=== PATIENT | male | born 1955 | race Hispanic/Latino ===

== ENCOUNTER 2024-01-05 19:15 | Emergency (ER) | payer MEDICARE, OTHER ==
[~2024-01-05] VITALS: Ht 157.5 cm; Wt 58.1 kg
[~2024-01-05 19:15] MED LIST: AMLODIPINE BESYL5 MG PO; CEFDINIR300 MG PO; COREG3.125 MG PO; FLOMAX0.4 MG PO; FLUOXETINE HCL20 M1 PO; HYDRALAZINE HCL50 MG PO; LEVOTHYROXINE50 MCG PO; LIPITOR10 MG PO; LOSARTAN POTAS100 MG PO; METFORMIN HCL500 M2 PO; PLAVIX75 MG PO; TRAZODONE HCL50 MG PO
[2024-01-05 19:25] VITALS: PULSE 89; RESP 18; TEMP 99.1
[2024-01-05 20:32] VITALS: BP 154/80; O2SAT 100
== END 2024-01-05 20:19 | disposition home or self-care (01) ==
LOC: ER 19:20
DX: Z46.6 Encounter for fitting and adjustment of urinary device (principal); I10 Essential (primary) hypertension; E11.9 Type 2 diabetes mellitus without complications; E78.5 Hyperlipidemia, unspecified; E03.9 Hypothyroidism, unspecified; I25.10 Atherosclerotic heart disease of native coronary artery without angina pectoris; D64.9 Anemia, unspecified; Z86.73 Personal history of transient ischemic attack (TIA), and cerebral infarction without residual deficits
CPT/HCPCS: 99283

== ENCOUNTER 2025-02-05 20:13 | Emergency (ER) | payer MEDICARE, OTHER ==
[~2025-02-05] VITALS: Ht 167.6 cm; Wt 54.4 kg
[~2025-02-05 20:13] MED LIST changes: +FLEET ENEMA133 ML PR
[2025-02-05] MEDS: ACETAMINOPHEN 1000 MG/100 ML IV STA (22:10)
[2025-02-05] MEDS: KETOROLAC TROMETHAMINE 30 MG/ML VIAL IV STA (22:11)
[2025-02-05] MEDS: SODIUM CHLORIDE 0.9% 1000ML 1,000 ML IV SCH (22:11)
[2025-02-05 22:13] LABS: BASOPHILS % 0.1 % (0.0-1.0); EOSINOPHILS % 0.0 % (0.0-6.0); LYMPHOCYTES % 4.3 % (18.0-39.1); MONOCYTES % 9.8 % (4.4-11.3); NEUTROPHILS % 84.8 % (38.7-80.0); RED CELL DISTRIBUTION WIDTH 13.2 % (11.7-14.4)
[2025-02-05 22:28] LABS: EST GLOMERULAR FILTRATION RATE 64.0 ML/MIN (>=60)
[2025-02-05 22:42] VITALS: PULSE 80; TEMP 99.5
[2025-02-05 22:53] LABS: CORONAVIRUS COVID-19 AG NEGATIVE (NEGATIVE)
[2025-02-05 23:04] LABS: LEUKOCYTE ESTERASE ,URINE LARGE (NEGATIVE); PROTEIN,URINE DIPSTICK 2+ (NEGATIVE); URINE UROBILINOGEN 0.2 mg/dL (0.2 - 1)
[2025-02-05 23:12] LABS: EPITHELIAL CELLS,URINE FEW /LPF; WBC,URINE (MAN) 21-50 /HPF (0-5)
[2025-02-05] MEDS: CEFTRIAXONE 2 GM in SODIUM CHLORIDE 0.9% 100 ML IV STA (23:29)
[2025-02-05] MEDS ORDERED: CEFDINIR300 MG PO (23:30)
[2025-02-05] MEDS ORDERED: ONDANSETRON ODT4 MG PO (23:31)
[2025-02-05 23:54] VITALS: RESP 17
[2025-02-06 00:11] VITALS: BP 133/78; PULSE 80; RESP 16; O2SAT 98
== END 2025-02-06 00:11 | disposition home or self-care (01) ==
LOC: ER 20:51
DX: R50.9 Fever, unspecified (principal); R11.2 Nausea with vomiting, unspecified; N39.0 Urinary tract infection, site not specified; I10 Essential (primary) hypertension; E11.65 Type 2 diabetes mellitus with hyperglycemia; E03.9 Hypothyroidism, unspecified; I25.10 Atherosclerotic heart disease of native coronary artery without angina pectoris; E78.5 Hyperlipidemia, unspecified; D64.9 Anemia, unspecified; F32.A Depression, unspecified; I69.354 Hemiplegia and hemiparesis following cerebral infarction affecting left non-dominant side
CPT/HCPCS: 36415; 71045; 80053; 81001; 83690; 83880; 84484; 85025; 87086; 87186; 87426; 93005; 99284; J0131; J0696; J1885; J7030; J7050

== ENCOUNTER 2025-03-08 13:59 | Emergency (ER) | payer MEDICARE, OTHER ==
[~2025-03-08] VITALS: Ht 167.6 cm; Wt 54.4 kg
[~2025-03-08 13:59] MED LIST changes: +ONDANSETRON ODT4 MG PO
[2025-03-08 15:00] VITALS: PULSE 73; RESP 16; TEMP 97.6; O2SAT 99
== END 2025-03-08 18:04 | disposition home or self-care (01) ==
LOC: ER 15:12
DX: K56.41 Fecal impaction (principal); I10 Essential (primary) hypertension; E11.9 Type 2 diabetes mellitus without complications; E78.5 Hyperlipidemia, unspecified; D64.9 Anemia, unspecified; E03.9 Hypothyroidism, unspecified; F32.A Depression, unspecified; I69.354 Hemiplegia and hemiparesis following cerebral infarction affecting left non-dominant side
CPT/HCPCS: 99283